=== PATIENT | male | born 1975 | race Caucasian/White ===

== ENCOUNTER 2023-10-13 20:59 | Emergency (ER) | payer OTHER, BC ==
[2023-10-13 21:20] VITALS: BP 133/88; PULSE 80; RESP 16; TEMP 99.4; BMI 26.4
[2023-10-13] MEDS ORDERED: DIPHTH,PERTUSS(ACELL),TET 0.5 ML DISP.SYRIN IM ONE (22:42)
[2023-10-13] MEDS: DIPHTH,PERTUSS(ACELL),TET 0.5 ML DISP.SYRIN IM ONE (22:42)
== END 2023-10-13 22:49 | disposition home or self-care (01) ==
LOC: FER 20:59 → FM/S 21:16 → FER 22:49
PROC: 3E0234Z Introduction of Serum, Toxoid and Vaccine into Muscle, Percutaneous Approach (ICD-10-PCS; principal; 2023-10-13)
DX: S63.501A Unspecified sprain of right wrist, initial encounter (principal); S50.01XA Contusion of right elbow, initial encounter; S60.221A Contusion of right hand, initial encounter; W01.0XXA Fall on same level from slipping, tripping and stumbling without subsequent striking against object, initial encounter
CPT/HCPCS: 73070-TC-RT-FY; 73110-TC-RT-FY; 73130-TC-RT-FY; 90715; 99284-25